=== PATIENT | female | born 1985 | race Two or more races ===

== ENCOUNTER → 2018-08-25 | Emergency (ER) | payer OTHER | LOC: MW.ED 17:09 | DX: O99.89 Other specified diseases and conditions complicating pregnancy, childbirth and the puerperium (principal) ==

== ENCOUNTER 2018-09-04 16:35 | Observation (INO) | payer OTHER | END 2018-09-04 19:05 | disposition home or self-care (01) | LOC: MW.OBCHECK 16:35 → MW.OB 16:38 | PROVIDERS: ADMIT Obstetrics & Gynecology; ATTEND Obstetrics & Gynecology | DX: O77.0 Labor and delivery complicated by meconium in amniotic fluid (principal); O99.824 Streptococcus B carrier state complicating childbirth; Z3A.40 40 weeks gestation of pregnancy; Z37.0 Single live birth | CPT/HCPCS: 59025; 81003 ==

== ENCOUNTER 2018-09-05 07:35 | Inpatient (IN) | payer OTHER ==
[2018-09-05] MEDS ORDERED: Ondansetron 4 MG/2 ML SDV IV PRN (08:04)
[2018-09-05] MEDS ORDERED: Tranexamic Acid 1,000 MG in Sodium Chloride 0.9% 100 ML IV PRN (08:04)
[2018-09-05] MEDS ORDERED: Butorphanol 1 MG/ML SDV IVPUSH PRN (08:04)
[2018-09-05] MEDS ORDERED: Sodium Chloride 0.9% 10 ML SDV IV PRN (08:04)
[2018-09-05] MEDS ORDERED: Methylergonovine 0.2 MG/1 ML Amp IM PRN (08:04)
[2018-09-05] MEDS ORDERED: Carboprost Tromethamine 250 MCG/1 ML Amp IM PRN (08:04)
[2018-09-05] MEDS ORDERED: Lidocaine 1% 50 ML MDV INJECT PRN (08:04)
[2018-09-05] MEDS ORDERED: Water For Irrigation,Sterile 1,000 ML Container IRR PRN (08:04)
[2018-09-05] MEDS ORDERED: Misoprostol 200 MCG Tab PO PRN (08:04)
[2018-09-05] MEDS ORDERED: Ampicillin 2 GM in Sodium Chloride 0.9% 100 ML IV ONE (08:04)
[2018-09-05] MEDS ORDERED: Sodium Chloride 0.9% 2.5 ML Syringe FLUSH PRN (08:04)
[2018-09-05] MEDS ORDERED: Sodium Chloride 0.9% 10 ML Syringe FLUSH PRN (08:04)
[2018-09-05] MEDS ORDERED: Nalbuphine 10 MG/1 ML Vial IVPUSH PRN (08:04)
[2018-09-05] MEDS ORDERED: Lactated Ringers 1,000 ML IV SCH (08:15)
[2018-09-05] MEDS ORDERED: Oxytocin/0.9 % Sodium Chloride 30 UNIT/500 ML BAG IV SCH (08:15)
[2018-09-05] MEDS ORDERED: Ampicillin 1 GM in Sodium Chloride 0.9% 50 ML IV SCH (12:00)
--- NOTE | 2018-09-05 17:00 | PCM.DEL ---
L & D Note - General Info Date of Service: 09/05/18 Mother's Due Date: 09/04/18 - Delivery Note Labor: Augmented by ARM Delivery Outcome: Livebirth Delivery Method: Spontaneous Vaginal Delivery-Single Presentation: Vertex Nuchal Cord: None Anesthesia Type: None Amniotic Fluid Description: Meconium Stained Episiotomy Type: None Laceration: Labial Placenta: Intact Cord: 3 Vessels Estimated Blood Loss: 500 Score 1 min: 9 Score 5 min: 9 Delivery Comments (Free Text/Narrative):: Live female delivered at 1534 9/9 weight 3810g - General Info Date of Service: 09/05/18 - Patient Data Weight - Most Recent: 94.347 kg Lab Results Last 24 Hours: Laboratory Results - last 24 hr 09/05/18 09/05/18 Range/Units 08:31 09:24 WBC 9.01 (4.0-11.0) K/uL RBC 4.42 (4.30-5.90) M/uL Hgb 12.1 (12.0-16.0) g/dL Hct 37.1 (36.0-46.0) % MCV 83.9 (80.0-98.0) fL MCH 27.4 (27.0-32.0) pg MCHC 32.6 (31.0-37.0) g/dL RDW Std Deviation 69.3 H (28.0-62.0) fl RDW Coeff of Enoch 23 H (11.0-15.0) % Plt Count 178 (150-400) K/uL Nucleated RBC % 0.0 /100WBC Nucleated RBCs # 0 K/uL Blood Type A POSITIVE Antibody Screen NEGATIVE Med Orders - Current: Current Medications Butorphanol Tartrate (Stadol) 1 mg IVPUSH Q1H PRN PRN Reason: Pain Carboprost Tromethamine (Hemabate Ds) 250 mcg IM ASDIRECTED PRN PRN Reason: Post Hemorrhage Ampicillin Sodium 1 gm/ Sodium (Chloride) 50 mls @ 100 mls/hr IV Q4H [facility] Last Admin: 09/05/18 12:26 Dose: 100 mls/hr Lactated Ringer's (Ringers, Lactated) 1,000 mls @ 150 mls/hr IV ASDIRECTED [facility] Last Admin: 09/05/18 08:32 Dose: 150 mls/hr Oxytocin/Sodium Chloride (Oxytocin 30 Unit/500 Ml-Ns) 30 unit in 500 mls @ 555 mls/hr IV TITRATE [facility] Last Admin: 09/05/18 15:36 Dose: 555 mls/hr Tranexamic Acid 1,000 mg/ (Sodium Chloride) 110 mls @ 660 mls/hr IV ONETIME PRN PRN Reason: Bleeding Lidocaine HCl (Xylocaine 1%) 50 ml INJECT ONETIME PRN PRN Reason: Laceration repair Methylergonovine Maleate (Methergine) 0.2 mg IM ASDIRECTED PRN PRN Reason: Post Hemorrhage Last Admin: 09/05/18 16:23 Dose: 0.2 mg Misoprostol (Cytotec) 200 mcg PO ONETIME PRN PRN Reason: Post Hemorrhage Nalbuphine HCl (Nubain) 10 mg IVPUSH Q1H PRN PRN Reason: Pain (severe 7-10) Last Admin: 09/05/18 16:10 Dose: 10 mg Ondansetron HCl (Zofran) 4 mg IV Q4H PRN PRN Reason: Nausea/Vomiting Sodium Chloride (Saline Flush) 10 ml FLUSH ASDIRECTED PRN PRN Reason: Keep Vein Open Sodium Chloride (Saline Flush) 2.5 ml FLUSH ASDIRECTED PRN PRN Reason: Keep Vein Open Sodium Chloride (Normal Saline) 10 ml IV ASDIRECTED PRN PRN Reason: IV Use Sterile Water (Sterile Water For Irrigation) 1,000 ml IRR ASDIRECTED PRN PRN Reason: delivery Last Admin: 09/05/18 16:22 Dose: 1,000 ml Discontinued Medications Ampicillin Sodium 2 gm/ Sodium (Chloride) 100 mls @ 200 mls/hr IV ONETIME ONE Stop: 09/05/18 08:33 Last Admin: 09/05/18 08:32 Dose: 200 mls/hr - Problem List & Annotations (1) Vaginal delivery SNOMED Code(s): 051011423 Code(s): O80 - ENCOUNTER FOR FULL-TERM UNCOMPLICATED DELIVERY Status: Acute Current Visit: No - Problem List Review Problem List Initiated/Reviewed/Updated: Yes - My Orders Last 24 Hours: My Active Orders 09/05/18 08:04 Patient Status [ADT] Routine Heart Tones [RC] CONTINUOUS Non Stress Test [RC] PER UNIT ROUTINE May Shower [RC] ASDIRECTED Notify Provider [RC] PRN Up ad Carol [RC] ASDIRECTED Vaginal Exam [RC] PRN Vital Signs [RC] PER UNIT ROUTINE Butorphanol [Stadol] 1 mg IVPUSH Q1H PRN Carboprost Tromethamine [Hemabate DS] 250 mcg IM ASDIRECTED PRN Lidocaine 1% [Xylocaine 1%] 50 ml INJECT ONETIME PRN Methylergonovine [Methergine] 0.2 mg IM ASDIRECTED PRN Nalbuphine [Nubain] 10 mg IVPUSH Q1H PRN Ondansetron [Zofran] 4 mg IV Q4H PRN Sodium Chloride 0.9% [Normal Saline] 10 ml IV ASDIRECTED PRN Sodium Chloride 0.9% [Saline Flush] 10 ml FLUSH ASDIRECTED PRN Sodium Chloride 0.9% [Saline Flush] 2.5 ml FLUSH ASDIRECTED PRN Tranexamic Acid [Cyklokapron] 1,000 mg Sodium Chloride 0.9% [Normal Saline] 100 ml IV ONETIME Water For Irrigation,Sterile [Sterile Water for Irrigation] 1,000 ml IRR ASDIRECTED PRN miSOPROStol [Cytotec] 200 mcg PO ONETIME PRN Scalp Electrode [WOMSER] Per Unit Routine Peripheral IV Insertion Adult [OM.PC] Routine Resuscitation Status Routine 09/05/18 08:15 Lactated Ringers [Ringers, Lactated] 1,000 ml IV ASDIRECTED Oxytocin/0.9 % Sodium Chloride [Oxytocin 30 Unit/500 ML-NS] 30 unit in 500 ml IV TITRATE 09/05/18 12:00 Ampicillin 1 gm Sodium Chloride 0.9% [Normal Saline] 50 ml IV Q4H
[2018-09-05] MEDS ORDERED: oxyCODONE 5 MG Tab PO PRN (17:01)
[2018-09-05] MEDS ORDERED: Acetaminophen 500 MG Tab PO PRN ×2 (17:01)
[2018-09-05] MEDS ORDERED: Benzocaine/Menthol 20%-0.5% Spray 78 GM Cannister TOP PRN (17:01)
[2018-09-05] MEDS ORDERED: Docusate Sodium 100 MG Cap PO PRN (17:01)
[2018-09-05] MEDS ORDERED: Witch Hazel Medicated Pads 40/Jar TOP PRN (17:01)
[2018-09-05] MEDS ORDERED: Bisacodyl 10 MG Supp RECTAL PRN (17:01)
[2018-09-05] MEDS ORDERED: Ibuprofen 400 MG Tab PO PRN (17:01)
[2018-09-05] MEDS ORDERED: Lanolin 100% Cream 7 GM Tube TOP PRN (17:01)
[2018-09-06] MEDS: Ibuprofen 800 MG Tab PO PRN ×2 (00:19→16:40)
--- NOTE | 2018-09-06 02:28 | OR ---
SURGEON: ISHAN DOE DATE OF PROCEDURE:09/05/2018 PREOPERATIVE DIAGNOSES: A 33-year-old 4, para 3, at 40 weeks and 1 day in labor. POSTOPERATIVE DIAGNOSIS: A 33-year-old 4, para 3, at 40 weeks and 1 day in labor. PROCEDURE: Normal spontaneous vaginal delivery. ESTIMATED BLOOD LOSS: 500. PAIN CONTROL: None. NOTES AND FINDINGS: A live female delivered at 1534 hours. score, 9 and 9. Weight is 3810 g. BRIEF HISTORY: She came, 33-year-old, 40 weeks and 1 day, came in active labor. She was 5 cm, GBS positive. She received ampicillin. She then made change. She became 6 to 7 dilated. She was AROM. She then made rapid progress. PROCEDURE IN DETAIL: Before being fully dilated, the patient was pushing, and she delivered the head and the anterior body. The provider was not present then, however, came after delivery of the placenta. Perineum was inspected by the provider, Dr. Mar Christensen, and the perineum had left labial laceration, which was not bleeding, so was left. Massaged yielded a couple of clots in the uterus. Pitocin was running, and Methergine was given. The bleeding was then controlled. All instrument and pad counts were correct x2. The patient tolerated the procedure well, and left in the Labor and Delivery room with the baby in stable condition. RANDY NELSON /[id number] ARMANDO
--- NOTE | 2018-09-06 09:03 | PCM.PNPP ---
- General Info Date of Service: 09/06/18 Subjective Update: 33 yo s/p , comfortable , denies any complains Functional Status: Reports: Pain Controlled, Tolerating Diet, Ambulating, Urinating - Review of Systems General: Reports: No Symptoms HEENT: Reports: No Symptoms Pulmonary: Reports: No Symptoms Cardiovascular: Reports: No Symptoms Gastrointestinal: Reports: No Symptoms Genitourinary: Reports: No Symptoms Musculoskeletal: Reports: No Symptoms Skin: Reports: No Symptoms Neurological: Reports: No Symptoms Psychiatric: Reports: No Symptoms - General Info Date of Service: 09/06/18 - Patient Data Vital Signs - Most Recent: Last Vital Signs Temp 36.6 C 09/06/18 04:41 Pulse 79 09/06/18 07:36 Resp 16 09/06/18 07:36 BP 120/67 09/06/18 07:36 Pulse Ox 96 09/06/18 07:36 Weight - Most Recent: 94.347 kg Lab Results - Last 24 Hours: Laboratory Results - last 24 hr 09/05/18 09/06/18 Range/Units 09:24 05:30 Hgb 11.1 L (12.0-16.0) g/dL Hct 34.9 L (36.0-46.0) % Blood Type A POSITIVE Antibody Screen NEGATIVE Med Orders - Current: Current Medications Acetaminophen (Tylenol Extra Strength) 500 mg PO Q4H PRN PRN Reason: Pain Acetaminophen (Tylenol Extra Strength) 1,000 mg PO Q4H PRN PRN Reason: Pain Benzocaine/Menthol (Dermoplast Pain Relief 20%-0.5% [place]) 78 gm TOP ASDIRECTED PRN PRN Reason: Perineal Comfort Measure Bisacodyl (Dulcolax) 10 mg RECTAL ONETIME PRN PRN Reason: Constipation Butorphanol Tartrate (Stadol) 1 mg IVPUSH Q1H PRN PRN Reason: Pain Carboprost Tromethamine (Hemabate Ds) 250 mcg IM ASDIRECTED PRN PRN Reason: Post Hemorrhage Docusate Sodium (Colace) 100 mg PO BID PRN PRN Reason: Constipation Emollient Ointment (Lansinoh Hpa) 0 gm TOP ASDIRECTED PRN PRN Reason: Sore Nipples Lactated Ringer's (Ringers, Lactated) 1,000 mls @ 150 mls/hr IV ASDIRECTED [facility] Last Admin: 09/05/18 08:32 Dose: 150 mls/hr Oxytocin/Sodium Chloride (Oxytocin 30 Unit/500 Ml-Ns) 30 unit in 500 mls @ 555 mls/hr IV TITRATE [facility] Last Admin: 09/05/18 15:36 Dose: 555 mls/hr Tranexamic Acid 1,000 mg/ (Sodium Chloride) 110 mls @ 660 mls/hr IV ONETIME PRN PRN Reason: Bleeding Ibuprofen (Motrin) 400 mg PO Q4H PRN PRN Reason: Pain Ibuprofen (Motrin) 800 mg PO Q6H PRN PRN Reason: Pain Last Admin: 09/06/18 00:19 Dose: 800 mg Lidocaine HCl (Xylocaine 1%) 50 ml INJECT ONETIME PRN PRN Reason: Laceration repair Methylergonovine Maleate (Methergine) 0.2 mg IM ASDIRECTED PRN PRN Reason: Post Hemorrhage Last Admin: 09/05/18 16:23 Dose: 0.2 mg Misoprostol (Cytotec) 200 mcg PO ONETIME PRN PRN Reason: Post Hemorrhage Nalbuphine HCl (Nubain) 10 mg IVPUSH Q1H PRN PRN Reason: Pain (severe 7-10) Last Admin: 09/05/18 16:10 Dose: 10 mg Ondansetron HCl (Zofran) 4 mg IV Q4H PRN PRN Reason: Nausea/Vomiting Oxycodone HCl (Oxycodone) 5 mg PO Q2H PRN PRN Reason: Pain Sodium Chloride (Saline Flush) 10 ml FLUSH ASDIRECTED PRN PRN Reason: Keep Vein Open Sodium Chloride (Saline Flush) 2.5 ml FLUSH ASDIRECTED PRN PRN Reason: Keep Vein Open Sodium Chloride (Normal Saline) 10 ml IV ASDIRECTED PRN PRN Reason: IV Use Sterile Water (Sterile Water For Irrigation) 1,000 ml IRR ASDIRECTED PRN PRN Reason: delivery Last Admin: 09/05/18 16:22 Dose: 1,000 ml Witch Faviola (Tucks) 1 pad TOP ASDIRECTED PRN PRN Reason: comfort care Discontinued Medications Ampicillin Sodium 1 gm/ Sodium (Chloride) 50 mls @ 100 mls/hr IV Q4H [facility] Last Admin: 09/05/18 12:26 Dose: 100 mls/hr Ampicillin Sodium 2 gm/ Sodium (Chloride) 100 mls @ 200 mls/hr IV ONETIME ONE Stop: 09/05/18 08:33 Last Admin: 09/05/18 08:32 Dose: 200 mls/hr - Infant Interaction Support Person: - Recovery Exam Fundal Tone: Firm Fundal Level: 1 Fingerbreadths Below Umbilicus Fundal Placement: Midline Lochia Amount: Small Lochia Color: Rubra/Red Perineum Description: Intact, Minimal Bruising/Swelling Episiotomy/Laceration: None Bladder Status: Voiding Urinary Elimination: Voided - Exam General: Alert HEENT: Pupils Equal Neck: Supple Lungs: Clear to Auscultation Cardiovascular: Regular Rate, Regular Rhythm GI/Abdominal Exam: Normal Bowel Sounds Extremities: Normal Inspection Neurological: No New Focal Deficit Psy/Mental Status: Alert - Problem List & Annotations (1) Vaginal delivery SNOMED Code(s): 170294642 Code(s): O80 - ENCOUNTER FOR FULL-TERM UNCOMPLICATED DELIVERY Status: Acute Current Visit: No - Problem List Review Problem List Initiated/Reviewed/Updated: Yes - My Orders Last 24 Hours: My Active Orders 09/05/18 08:04 Patient Status [ADT] Routine Heart Tones [RC] CONTINUOUS Non Stress Test [RC] PER UNIT ROUTINE May Shower [RC] ASDIRECTED Notify Provider [RC] PRN Up ad Carol [RC] ASDIRECTED Butorphanol [Stadol] 1 mg IVPUSH Q1H PRN Carboprost Tromethamine [Hemabate DS] 250 mcg IM ASDIRECTED PRN Lidocaine 1% [Xylocaine 1%] 50 ml INJECT ONETIME PRN Methylergonovine [Methergine] 0.2 mg IM ASDIRECTED PRN Nalbuphine [Nubain] 10 mg IVPUSH Q1H PRN Ondansetron [Zofran] 4 mg IV Q4H PRN Sodium Chloride 0.9% [Normal Saline] 10 ml IV ASDIRECTED PRN Sodium Chloride 0.9% [Saline Flush] 10 ml FLUSH ASDIRECTED PRN Sodium Chloride 0.9% [Saline Flush] 2.5 ml FLUSH ASDIRECTED PRN Tranexamic Acid [Cyklokapron] 1,000 mg Sodium Chloride 0.9% [Normal Saline] 100 ml IV ONETIME Water For Irrigation,Sterile [Sterile Water for Irrigation] 1,000 ml IRR ASDIRECTED PRN miSOPROStol [Cytotec] 200 mcg PO ONETIME PRN Peripheral IV Insertion Adult [OM.PC] Routine 09/05/18 08:15 Lactated Ringers [Ringers, Lactated] 1,000 ml IV ASDIRECTED Oxytocin/0.9 % Sodium Chloride [Oxytocin 30 Unit/500 ML-NS] 30 unit in 500 ml IV TITRATE 09/05/18 17:01 Patient Status [ADT] Routine Vital Signs [RC] PER UNIT ROUTINE Acetaminophen [Tylenol Extra Strength] 1,000 mg PO Q4H PRN Acetaminophen [Tylenol Extra Strength] 500 mg PO Q4H PRN Benzocaine/Menthol [Dermoplast Pain Relief 20%-0.5% Clinton] 78 gm TOP ASDIRECTED PRN Bisacodyl [Dulcolax] 10 mg RECTAL ONETIME PRN Docusate Sodium [Colace] 100 mg PO BID PRN Ibuprofen [Motrin] 400 mg PO Q4H PRN Ibuprofen [Motrin] 800 mg PO Q6H PRN Lanolin [Lansinoh HPA] See Dose Instructions TOP ASDIRECTED PRN Witch Faviola [Tucks] 1 pad TOP ASDIRECTED PRN oxyCODONE 5 mg PO Q2H PRN Assess Lochia [WOMSER] Per Unit Routine Assess Uterine Involution [WOMSER] Per Unit Routine Peripheral IV Discontinue [OM.PC] Routine 09/05/18 Dinner Regular Diet [DIET] - Assessment Assessment:: 33 yo P4 s/p PPD 1 , stable - Plan Plan:: Routine care Discharge home
[2018-09-06 16:33] VITALS: BP 133/79
== END 2018-09-06 18:47 | disposition home or self-care (01) | DRG 807 ==
LOC: MW.OBCHECK 07:35 → MW.OB 10:45 → OBSVTOIN 17:01 → MW.OB 17:01
PROVIDERS: ADMIT Obstetrics & Gynecology; ATTEND Obstetrics & Gynecology
PROC: 10E0XZZ Delivery of Products of Conception, External Approach (ICD-10-PCS; principal; 2018-09-06)
PROC: 4A1HXCZ Monitoring of Products of Conception, Cardiac Rate, External Approach (ICD-10-PCS; 2018-09-06)
PROC: 10907ZC Drainage of Amniotic Fluid, Therapeutic from Products of Conception, Via Natural or Artificial Opening (ICD-10-PCS; 2018-09-06)
DX: O48.0 Post-term pregnancy (principal); Z37.0 Single live birth; O99.824 Streptococcus B carrier state complicating childbirth; O99.02 Anemia complicating childbirth; D50.9 Iron deficiency anemia, unspecified; O77.0 Labor and delivery complicated by meconium in amniotic fluid; O70.0 First degree perineal laceration during delivery; Z3A.40 40 weeks gestation of pregnancy
CPT/HCPCS: 36415; 59025; 59409; 85014; 85018; 85027; 86850; 86900; 86901; A9270-GY; J0290; J2210; J2300; J2590; J7030; J7050; J7120

== ENCOUNTER 2019-05-17 12:58 | Emergency (ER) | payer OTHER ==
[2019-05-17] MEDS ORDERED: Erythromycin Base 0.5% Ophth Oint 1 GM Tube EYERT ONE (13:29)
[2019-05-17] MEDS ORDERED: Ketorolac 60 MG/2 ML SDV IM ONE (13:29)
--- NOTE | 2019-05-17 13:36 | EDM.PDOC ---
ED HPI GENERAL MEDICAL PROBLEM - General Chief Complaint: Headache Stated Complaint: DIZZY/HEADACHE Time Seen by Provider: 05/17/19 13:23 Source of Information: Reports: Patient History Limitations: Reports: No Limitations - History of Present Illness INITIAL COMMENTS - FREE TEXT/NARRATIVE: HISTORY AND PHYSICAL: History of present illness: Patient is a 33-year-old female who presents to the emergency room with complaints of headache which she describes as a tension headache. Stating it starts in the neck and posterior scalp and wraps around her temples. She states her headache pain has improved and now describes this as dull. She denies any light or noise sensitivity. No previous history of headaches or migraines. She also noted a burst blood vessel to the right lateral eye with the onset of this headache. She states she has been rubbing the eye frequently but denies any injury or trauma. Patient denies any fever, chills, change in vision, syncope or near syncope. Denies any chest pain, back pain, shortness of breath or cough. Denies any abdominal pain, nausea, vomiting, diarrhea, constipation or dysuria. Has not noted any blood in urine or stool. Patient has been eating and drinking appropriately. Review of systems: As per history of present illness and below otherwise all systems reviewed and negative. Past medical history: As per history of present illness and as reviewed below otherwise noncontributory. Surgical history: As per history of present illness and as reviewed below otherwise noncontributory. Social history: See social history for further information Family history: As per history of present illness and as reviewed below otherwise noncontributory. Physical exam: General: Well developed and nourished 33-year-old female. Alert and oriented. Nontoxic-appearing and in no acute distress. HEENT: Atraumatic, normocephalic, pupils equal and reactive bilaterally, negative for conjunctival pallor or scleral icterus, subconjunctival hemorrhage of the right lateral eye, mucous membranes moist, Bilateral maxillary sinus tenderness, TMs normal bilaterally, throat clear, neck supple, nontender, trachea midline. No drooling or trismus noted. No meningeal signs. No hot potato voice noted. Lungs: Clear to auscultation, breath sounds equal bilaterally, chest nontender. Heart: S1S2, regular rate and rhythm without overt murmur Abdomen: Soft, nondistended, nontender. Negative for masses or hepatosplenomegaly. Negative for costovertebral tenderness. Skin: Intact, warm, dry. No lesions or rashes noted. C-spine/Back: No pinpoint vertebral tenderness upon palpation. No crepitus, step -offs or obvious deformities. Patient is ambulatory into the emergency room without difficulty or deficit. Able to rock back on heels and walk on toes. Denies any urinary or fecal incontinence. Denies any numbness, tingling or saddle paresthesia. Extremities: Atraumatic, moves all extremities per self without difficulty or deficits, negative for cords or calf pain. Neurovascular unremarkable. Neuro: Awake, alert, oriented. Cranial nerves II through XII unremarkable. Cerebellum unremarkable. Motor and sensory unremarkable throughout. Exam nonfocal. Notes: She states her headache pain was much more severe prior to arrival and now states it is dull. My visual exam is within normal limits. She does have a small abrasion from rubbing her eye where she has the subconjunctival hemorrhage. Head CT is negative. Supportive care measures were reviewed and discussed. Voices understanding and is agreeable to plan of care. Denies any further questions or concerns at this time. Diagnostics: Head CT Therapeutics: Erythromycin, Toradol Prescription: None Impression: Subconjunctival hemorrhage, right Tension Migraine Plan: 1. Avoid any strenuous activity. 2. Tylenol and/or Ibuprofen as need for pain 3. Increase your oral fluids to prevent dehydration. Apply ointment 4 x daily over the next several days. 4. Follow up with your primary care provider as we discussed. Return to the ED as needed and as discussed. Definitive disposition and diagnosis as appropriate pending reevaluation and review of above. Treatments MANAGER OF SOFTWARE DEVELOPMENT: Reports: Other (see below) Other Treatments MANAGER OF SOFTWARE DEVELOPMENT: Excedrin at 1130 Head Pain Score (Numeric/FACES): 5 Upper Back Pain Score (Numeric/FACES): 5 - Related Data Allergies Allergy/AdvReac Type Severity Reaction Status Date / Time No Known Allergies Allergy Verified 05/17/19 13:12 Home Meds: Home Meds Amoxicillin 500 mg PO BID 05/17/19 [History] Past Medical History - Past Health History Medical/Surgical History: Denies Medical/Surgical History HEENT History: Reports: None Cardiovascular History: Reports: None Respiratory History: Reports: None Gastrointestinal History: Reports: None, Other (See Below) Other Gastrointestinal History: Colitis Genitourinary History: Reports: None CLINICAL LABORATORY SCIENTIST History: Reports: Musculoskeletal History: Reports: None Neurological History: Reports: Migraines Psychiatric History: Reports: Anxiety Endocrine/Metabolic History: Reports: None Hematologic History: Reports: Anemia Immunologic History: Reports: None Oncologic (Cancer) History: Reports: None Dermatologic History: Reports: None - Infectious Disease History Infectious Disease History: Reports: None - Past Surgical History Head Surgeries/Procedures: Reports: None HEENT Surgical History: Reports: None Respiratory Surgical History: Reports: None GI Surgical History: Reports: None Female Surgical History: Reports: None Social & Family History - Family History Family Medical History: Noncontributory HEENT: Reports: None Cardiac: Reports: None Respiratory: Reports: None GI: Reports: None : Reports: None OBGYN: Reports: None Musculoskeletal: Reports: None Neurological: Reports: Migraines Psychiatric: Reports: None Endocrine/Metabolic: Reports: None Hematologic: Reports: Anemia Immunologic: Reports: None Dermatologic: Reports: None Oncologic: Reports: None - Tobacco Use Smoking Status *Q: Never Smoker Second Hand Smoke Exposure: No - Caffeine Use Caffeine Use: Reports: Coffee - Recreational Drug Use Recreational Drug Use: No ED ROS GENERAL - Review of Systems Review Of Systems: Comprehensive ROS is negative, except as noted in HPI. - Physical Exam Exam: See Below (See dictation) Course - Vital Signs Last Recorded V/S: Last Vital Signs Temp 97.6 F 05/17/19 13:14 Pulse 77 05/17/19 14:59 Resp 18 05/17/19 14:59 BP 108/68 05/17/19 14:59 Pulse Ox 97 05/17/19 14:59 - Orders/Labs/Meds Meds: Medications Discontinued Medications Generic Name Dose Route Start Last Admin Trade Name Freq PRN Reason Stop Dose Admin Erythromycin 1 gm 05/17/19 13:29 05/17/19 13:48 Erythromycin 0.5% Ophth Oint EYERT 05/17/19 13:30 1 gm ONETIME ONE Administration Ketorolac Tromethamine 60 mg 05/17/19 13:29 05/17/19 13:47 Toradol IM 05/17/19 13:30 60 mg ONETIME ONE Administration Departure - Departure Time of Disposition: 14:19 Disposition: Home, Self-Care 01 Clinical Impression: Tension-type headache, Subconjunctival hemorrhage of right eye - Discharge Information Instructions: Tension Headache, Adult, [id number] Referrals: PCP,None [Primary Care Provider] - Forms: ED Department Discharge Additional Instructions: The following information is given to patients seen in the emergency department who are being discharged to home. This information is to outline your options for follow-up care. We provide all patients seen in our emergency department with a follow-up referral. The need for follow-up, as well as the timing and circumstances, are variable depending upon the specifics of your emergency department visit. If you don't have a primary care physician on staff, we will provide you with a referral. We always advise you to contact your personal physician following an emergency department visit to inform them of the circumstance of the visit and for follow-up with them and/or the need for any referrals to a consulting specialist. The emergency department will also refer you to a specialist when appropriate. This referral assures that you have the opportunity for follow-up care with a specialist. All of these measure are taken in an effort to provide you with optimal care, which includes your follow-up. Under all circumstances we always encourage you to contact your private physician who remains a resource for coordinating your care. When calling for follow-up care, please make the office aware that this follow-up is from your recent emergency room visit. If for any reason you are refused follow-up, please contact the [facility] Emergency Department at and asked to speak to the emergency department charge nurse. [facility] [address] [place] [id number] [facility] [address] [place] [id number] 1. Avoid any strenuous activity. 2. Tylenol and/or Ibuprofen as need for pain 3. Increase your oral fluids to prevent dehydration. Apply the ointment 3-4 x daily over the next 5 days 4. Follow up with your primary care provider as we discussed. Return to the ED as needed and as discussed. Sepsis Event Note - Evaluation Sepsis Screening Result: No Definite Risk - Focused Exam Vital Signs: Vital Signs Temp Pulse Resp BP Pulse Ox 05/17/19 14:59 77 18 108/68 97 05/17/19 13:14 97.6 F 74 16 141/78 H 99 Date Exam was Performed: 05/17/19 Time Exam was Performed: 20:52
--- NOTE | 2019-05-17 14:15 | CT ---
Head CT Technique: Multiple axial sections through the brain were obtained. Intravenous contrast was not utilized. Comparison: No prior intracranial imaging is available. Findings: Ventricles along with basal cisterns and sulci over the convexities are within normal limits for the patient's age. No abnormal parenchymal densities are seen. No evidence of intracranial hemorrhage. No midline shift or mass-effect is seen. Bone window settings were reviewed. No acute findings are seen within the paranasal sinuses or mastoid sinuses. No acute calvarial abnormality is appreciated. Impression: 1. Nothing acute is appreciated on noncontrast head CT exam. Diagnostic code #1 This report was dictated in Mountain Standard Time
[2019-05-17 14:59] VITALS: BP 108/68; PULSE 77
== END 2019-05-17 15:00 | disposition home or self-care (01) ==
LOC: MW.ED 12:58
DX: G44.209 Tension-type headache, unspecified, not intractable (principal); H11.31 Conjunctival hemorrhage, right eye
CPT/HCPCS: 70450; 96372; 99284; A9270; J1885; 99283

== ENCOUNTER 2020-08-17 20:21 | Emergency (ER) | payer OTHER ==
[2020-08-17] MEDS ORDERED: Acetaminophen 500 MG Tab PO ONE (20:47)
[2020-08-17] MEDS ORDERED: Sodium Chloride 0.9% 10 ML Syringe FLUSH PRN (20:47)
[2020-08-17] MEDS ORDERED: Ketorolac 30 MG/ML SDV IVPUSH ONE (20:47)
[2020-08-17] MEDS ORDERED: Sodium Chloride 0.9% 2.5 ML Syringe FLUSH PRN (20:47)
[2020-08-17] MEDS ORDERED: Sodium Chloride 0.9% 1,000 ML IV ONE (20:47)
[2020-08-17] MEDS ORDERED: Ondansetron 4 MG/2 ML SDV IVPUSH ONE (20:47)
[2020-08-17 21:30] LABS: BLOOD UREA NITROGEN,BUN 10 mg/dL (7.0-18.0); CHLORIDE,CL 103 mmol/L (98-107); GLUCOSE RANDOM 118 mg/dL (74-106); LIPASE 128 U/L (73-393); POTASSIUM,K 3.3 mmol/L (3.5-5.1); SODIUM,NA 139 mmol/L (136-145)
--- NOTE | 2020-08-17 22:46 | CR ---
INDICATION: COVID symptoms TECHNIQUE: Chest 1 view Comparison: None Findings: Cardiomediastinal silhouette is unremarkable. No pleural effusion or pneumothorax. Faint peripheral right mid and lower lung opacities. Bones are unremarkable. Impression: Faint peripheral right lung opacities which can be seen with infection. Dictated by Willie Gomez MD @ 08/17/2020 10:44:[address] Willie Gomez @ Aug 17 2020 10:44PM
--- NOTE | 2020-08-17 23:07 | EDM.PDOC ---
ED HPI GENERAL MEDICAL PROBLEM - General Chief Complaint: General Stated Complaint: COVID COMPLICATIONS Time Seen by Provider: 08/17/20 20:38 - History of Present Illness INITIAL COMMENTS - FREE TEXT/NARRATIVE: HISTORY AND PHYSICAL: History of present illness: This is a 35-year-old healthy female who presents ER today secondary to concerns of coronavirus. Patient reports that her was recently diagnosed with coronavirus 3 days ago and today has been having nausea, vomiting, cough, congestion, fevers, generalized malaise, weakness. Patient reports she does feel slightly short of breath. Patient denies any abdominal pain or discomfort. Patient denies any chest pain or discomfort except with coughing and deep inspiration. Patient denies any sore throat or ear pain. Patient reports that she feels a burning sensation in her chest when she coughs. Patient reports no history of hypertension, diabetes, liver, lung, kidney problems. Patient reports that she utilize one of her sons inhalers prior to coming to the ED with improvement in her shortness of breath. Patient is currently on her menses which is extremely heavy. She reports that she usually has extremely heavy periods and has been told she has been anemic in the past. Patient is currently not on any iron. Patient denies any recent dizziness syncopal or presyncopal episodes. Patient denies any melena or bright red blood per rectum. Patient reports that she has gone through more than usual pads but is unable to quantify Review of systems: As per history of present illness and below otherwise all systems reviewed and negative. Past medical history: As per history of present illness and as reviewed below otherwise noncontributory. Surgical history: As per history of present illness and as reviewed below otherwise noncontrib utory. Social history: No reported history of drug abuse. Family history: As per history of present illness and as reviewed below otherwise noncontributory. Physical exam: This patient was seen and evaluated during the 2019 SARS-CoV-2 novel coronavirus pandemic period. Community viral transmission is ongoing at time of this encounter and the emergency department is operating under pandemic response procedures. Constitutional: Patient is oriented to person, place, and time. Appears well- developed and well-nourished. No distress. HEENT: Moist mucous membranes Head: Normocephalic and atraumatic, neck supple, no nuchal rigidity, no photophobia, no Kernig's sign or Brudzinski sign, patient does not present with signs or symptoms of be consistent with meningitis. Eyes: Right eye exhibits no discharge. Left eye exhibits no discharge. No scleral icterus, pale conjunctiva. Neck: Normal range of motion. No tracheal deviation present. Cardiovascular: Normal rate and regular rhythm. Tachycardic heart rate of 110 Pulmonary: Effort normal, no respiratory distress. No wheezing rales or rhonchi Abdominal: No distention abd: Soft, nondistended, no rebound/guarding, no psoas or obturator signs, no tenderness at Mcberney's point, no Gaming's sign. Pt does not present with an exam that would be consistent with an acute surgical abdomen at this time, nontender to palpation Musculoskeletal: Normal range of motion Neurologic: Alert and oriented to person, place and time. Skin: [place], warm and dry. Psychiatric: Normal mood and affect. Behavior is normal. Judgment and thought content normal. Nursing note and vital signs have been reviewed Diagnostics: Pulse ox: 98% on room air normal Hemoglobin 8.8. MCV 66. Patient's labs are consistent with microcytic anemia most likely from heavy menses per the patient's report. Covid test positive Chest Xray: Normal cardiac silhouette Increased interstitial markings in the right lung consistent with likely Covid infection. No PTX No evidence of acute bony fracture. As interpreted by ER MD: [employer]: NSS x1 L Zofran 4 mg IV Toradol IV Acetaminophen p.o. Assessment and plan: This is a 35-year-old female who presents ER today secondary to sinus symptoms consistent with coronavirus. Patient's pulse ox here is 98% with a chest x-ray consistent with mild coronavirus infection. Patient is anemic which most likely secondary to her heavy menses. I have discussed with the patient in detail the need to start [id number] or prescription strength iron tablets. Patient is requesting a prescription. Patient has been instructed to use Colace and increase dietary fiber to assist with preventing constipation while on her iron. Patient's pulse ox is 98 to 99% on room air. At this time, the patient does not meet inpatient criteria for treatment of coronavirus nor does she meet outpatient criteria for infusion of antibody. Patient will be discharged home with a prescription for iron, Zofran and ibuprofen. Return precautions been discussed with her and her in detail. They have been Instructed to purchase a pulse oximeter to keep an eye on the oxygen level and to return if any increasing shortness of breath or significant drop in her oxygen level. Reassessment at the time of disposition demonstrates that the patient is in no acute distress. The patient has remained stable throughout the entire ED visit and is without objective evidence for acute process requiring urgent intervention or hospitalization. The patient is stable for discharge, counseling is provided as documented above, discussed symptomatic treatment and specific conditions for return. I have spoken with the patient/caregiver and discussed todays findings, in addition to providing specific details for the plan of care. Questions are answered and there is agreement with the plan. Definitive disposition and diagnosis as appropriate pending reevaluation and review of above. Head Pain Score (Numeric/FACES): 5 - Related Data Allergies Allergy/AdvReac Type Severity Reaction Status Date / Time No Known Allergies Allergy Verified 08/17/20 20:36 Home Meds: Home Meds Ibuprofen 600 mg PO Q6HR PRN #30 tablet 08/17/20 [Rx] Ondansetron [Zofran ODT] 4 mg PO Q6H PRN #12 tab.dis 08/17/20 [Rx] Pnv19/Iron Bg,S.p/Folic AC/Om3 [Pr Maxime 400 EC] 1 each PO DAILY #1 [id number] 08/17/20 [Rx] Past Medical History - Past Health History Medical/Surgical History: Denies Medical/Surgical History HEENT History: Reports: None Cardiovascular History: Reports: None Respiratory History: Reports: None Gastrointestinal History: Reports: None, Other (See Below) Other Gastrointestinal History: Colitis Genitourinary History: Reports: None CREATIVE ARTS THERAPIST History: Reports: Musculoskeletal History: Reports: None Neurological History: Reports: Migraines Psychiatric History: Reports: Anxiety Endocrine/Metabolic History: Reports: None Hematologic History: Reports: Anemia Immunologic History: Reports: None Oncologic (Cancer) History: Reports: None Dermatologic History: Reports: None - Infectious Disease History Infectious Disease History: Reports: None - Past Surgical History Head Surgeries/Procedures: Reports: None HEENT Surgical History: Reports: None Respiratory Surgical History: Reports: None GI Surgical History: Reports: None Female Surgical History: Reports: None Social & Family History - Family History Family Medical History: No Pertinent Family History HEENT: Reports: None Cardiac: Reports: None Respiratory: Reports: None GI: Reports: None : Reports: None OBGYN: Reports: None Musculoskeletal: Reports: None Neurological: Reports: Migraines Psychiatric: Reports: None Endocrine/Metabolic: Reports: None Hematologic: Reports: Anemia Immunologic: Reports: None Dermatologic: Reports: None Oncologic: Reports: None - Tobacco Use Tobacco Use Status *Q: Never Tobacco User - Caffeine Use Caffeine Use: Reports: None - Recreational Drug Use Recreational Drug Use: No ED ROS GENERAL - Review of Systems Review Of Systems: See Below ED EXAM, GENERAL - Physical Exam Exam: See Below Course - Vital Signs Last Recorded V/S: Last Vital Signs Temp 101 F H 08/17/20 21:19 Pulse 109 H 08/17/20 21:59 Resp 18 08/17/20 21:59 BP 101/53 L 08/17/20 21:59 Pulse Ox 96 08/17/20 21:59 - Orders/Labs/Meds Orders: Active Orders 24 hr Category Date Time Status Pulse Oximetry [RC] ASDIRECTED Care 08/17/20 20:47 Active Sodium Chloride 0.9% [Saline Flush] Med 08/17/20 20:47 Active 10 ml FLUSH ASDIRECTED PRN Sodium Chloride 0.9% [Saline Flush] Med 08/17/20 20:47 Active 2.5 ml FLUSH ASDIRECTED PRN Saline Lock Insert [OM.PC] Stat Oth 08/17/20 20:47 Ordered Medication Orders Sodium Chloride (Sodium Chloride 0.9% 10 Ml Syringe) 10 ml FLUSH ASDIRECTED PRN PRN Reason: Keep Vein Open Last Admin: 08/17/20 21:19 Dose: 10 ml Documented by: YASMANY Sodium Chloride (Sodium Chloride 0.9% 2.5 Ml Syringe) 2.5 ml FLUSH ASDIRECTED PRN PRN Reason: Keep Vein Open Last Admin: 08/17/20 21:19 Dose: 2.5 ml Documented by: YASMANY Labs: Laboratory Tests 08/17/20 08/17/20 08/17/20 Range/Units 20:54 20:54 21:00 WBC (4.0-11.0) K/uL RBC (4.30-5.90) M/uL Hgb (12.0-16.0) g/dL Hct (36.0-46.0) % MCV (80.0-98.0) fL MCH (27.0-32.0) pg MCHC (31.0-37.0) g/dL RDW Std Deviation (28.0-62.0) fl RDW Coeff of Enoch (11.0-15.0) % Plt Count (150-400) K/uL Add Manual Diff Neutrophils % (Manual) (48.0-80.0) % Lymphocytes % (Manual) (16.0-40.0) % Monocytes % (Manual) (0.0-15.0) % Eosinophils % (Manual) (0.0-7.0) % Nucleated RBC % /100WBC Absolute Seg Neuts (1.4-5.7) Band Neutrophils # Lymphocytes # (Manual) (0.6-2.4) Monocytes # (Manual) (0.0-0.8) Eosinophils # (Manual) (0.0-0.7) Nucleated RBCs # K/uL Poikilocytosis Anisocytosis Microcytosis Sodium (136-145) mmol/L Potassium (3.5-5.1) mmol/L Chloride (98-107) mmol/L Carbon Dioxide (21.0-32.0) mmol/L BUN (7.0-18.0) mg/dL Creatinine (0.6-1.0) mg/dL Est Cr Clr Drug Dosing mL/min Estimated GFR (MDRD) ml/min Glucose (74-106) mg/dL Calcium (8.5-10.1) mg/dL Total Bilirubin (0.2-1.0) mg/dL AST (15-37) IU/L ALT (14-63) IU/L Alkaline Phosphatase (46-116) U/L Total Protein (6.4-8.2) g/dL Albumin (3.4-5.0) g/dL Globulin (2.6-4.0) g/dL Albumin/Globulin Ratio (0.9-1.6) Lipase (73-393) U/L Urine Color YELLOW Urine Appearance SLT CLOUDY Urine pH 6.0 (5.0-8.0) Ur Specific [place] <= 1.005 (1.001-1.035) Urine Protein TRACE H (NEGATIVE) mg/dL Urine Glucose (UA) NEGATIVE (NEGATIVE) mg/dL Urine Ketones NEGATIVE (NEGATIVE) mg/dL Urine Occult Blood LARGE H (NEGATIVE) Urine Nitrite NEGATIVE (NEGATIVE) Urine Bilirubin NEGATIVE (NEGATIVE) Urine Urobilinogen 0.2 (<2.0) EU/dL Ur Leukocyte Esterase TRACE H (NEGATIVE) Urine RBC 65-70 (0-2/HPF) Urine WBC 4-7 (0-5/HPF) Ur Epithelial Cells FEW (NONE-FEW) Urine Bacteria RARE (NEGATIVE) Urine HCG, Qual NEGATIVE (NEGATIVE) SARS-CoV-2 RNA (JODI) POSITIVE H (NEGATIVE) 08/17/20 08/17/20 Range/Units 21:00 21:00 WBC 6.45 (4.0-11.0) K/uL RBC 4.28 L (4.30-5.90) M/uL Hgb 8.4 L (12.0-16.0) g/dL Hct 28.4 L (36.0-46.0) % MCV 66.4 L (80.0-98.0) fL MCH 19.6 L (27.0-32.0) pg MCHC 29.6 L (31.0-37.0) g/dL RDW Std Deviation 46.6 (28.0-62.0) fl RDW Coeff of Enoch 20 H (11.0-15.0) % Plt Count 190 (150-400) K/uL Add Manual Diff YES Neutrophils % (Manual) 80 (48.0-80.0) % Lymphocytes % (Manual) 14 L (16.0-40.0) % Monocytes % (Manual) 5 (0.0-15.0) % Eosinophils % (Manual) 1 (0.0-7.0) % Nucleated RBC % 0.0 /100WBC Absolute Seg Neuts 5.2 (1.4-5.7) Band Neutrophils # 0.1 Lymphocytes # (Manual) 0.9 (0.6-2.4) Monocytes # (Manual) 0.3 (0.0-0.8) Eosinophils # (Manual) 0.1 (0.0-0.7) Nucleated RBCs # 0 K/uL Poikilocytosis 1+ SLIGHT Anisocytosis 1+ SLIGHT Microcytosis 1+ SLIGHT Sodium 139 (136-145) mmol/L Potassium 3.3 L (3.5-5.1) mmol/L Chloride 103 (98-107) mmol/L Carbon Dioxide 23.0 (21.0-32.0) mmol/L BUN 10 (7.0-18.0) mg/dL Creatinine 0.9 (0.6-1.0) mg/dL Est Cr Clr Drug Dosing 83.23 mL/min Estimated GFR (MDRD) > 60.0 ml/min Glucose 118 H (74-106) mg/dL Calcium 7.8 L (8.5-10.1) mg/dL Total Bilirubin 0.1 L (0.2-1.0) mg/dL AST 23 (15-37) IU/L ALT 18 (14-63) IU/L Alkaline Phosphatase 63 (46-116) U/L Total Protein 8.1 (6.4-8.2) g/dL Albumin 3.3 L (3.4-5.0) g/dL Globulin 4.8 H (2.6-4.0) g/dL Albumin/Globulin Ratio 0.7 L (0.9-1.6) Lipase 128 (73-393) U/L Urine Color Urine Appearance Urine pH (5.0-8.0) Ur Specific [place] (1.001-1.035) Urine Protein (NEGATIVE) mg/dL Urine Glucose (UA) (NEGATIVE) mg/dL Urine Ketones (NEGATIVE) mg/dL Urine Occult Blood (NEGATIVE) Urine Nitrite (NEGATIVE) Urine Bilirubin (NEGATIVE) Urine Urobilinogen (<2.0) EU/dL Ur Leukocyte Esterase (NEGATIVE) Urine RBC (0-2/HPF) Urine WBC (0-5/HPF) Ur Epithelial Cells (NONE-FEW) Urine Bacteria (NEGATIVE) Urine HCG, Qual (NEGATIVE) SARS-CoV-2 RNA (JODI) (NEGATIVE) Meds: Medications Generic Name Dose Route Start Last Admin Trade Name Freq PRN Reason Stop Dose Admin Sodium Chloride 10 ml 08/17/20 20:47 08/17/20 21:19 Sodium Chloride 0.9% 10 Ml Syringe FLUSH 10 ml ASDIRECTED PRN Administration Keep Vein Open Sodium Chloride 2.5 ml 08/17/20 20:47 08/17/20 21:19 Sodium Chloride 0.9% 2.5 Ml Syringe FLUSH 2.5 ml ASDIRECTED PRN Administration Keep Vein Open Discontinued Medications Generic Name Dose Route Start Last Admin Trade Name Freq PRN Reason Stop Dose Admin Acetaminophen 1,000 mg 08/17/20 20:47 08/17/20 21:19 Acetaminophen 500 Mg Tab PO 08/17/20 20:48 1,000 mg ONETIME ONE Administration Sodium Chloride 1,000 mls @ 999 mls/hr 08/17/20 20:47 08/17/20 21:19 Normal Saline IV 08/17/20 21:47 999 mls/hr .Bolus ONE Administration Ketorolac Tromethamine 30 mg 08/17/20 20:47 08/17/20 21:19 Ketorolac 30 Mg/Ml Sdv IVPUSH 08/17/20 20:48 30 mg ONETIME ONE Administration Ondansetron HCl 4 mg 08/17/20 20:47 08/17/20 21:19 Ondansetron 4 Mg/2 Ml Sdv IVPUSH 08/17/20 20:48 4 mg ONETIME ONE Administration Departure - Departure Time of Disposition: 23:07 Disposition: Home, Self-Care 01 Condition: Good Clinical Impression: Pneumonia due to COVID-19 virus, Dehydration Iron deficiency anemia Qualifiers: Iron deficiency anemia type: chronic blood loss Qualified Code(s): D50.0 - Iron deficiency anemia secondary to blood loss (chronic) - Discharge Information Instructions: Dehydration, Adult, [id number], 10 Things You Can Do to Manage Your COVID-19 Symptoms at Home - CDC, COVID-19: Quarantine vs. Isolation - CDC, Preventing Iron Deficiency Anemia, Adult Referrals: PCP,None [Primary Care Provider] - Additional Instructions: You were seen and evaluated in the ER today secondary to signs and symptoms consistent with coronavirus infection. At this time he did not meet criteria for inpatient level of care for treatment of your coronavirus. Please purchase a pulse oximeter at your pharmacy and please keep an eye on your oxygen levels. If your ox level begins to drop below 91% or you start having increasing shortness of breath, please return to the ER for further evaluation. As we discussed, your iron level is extremely low resulting in low hemoglobin. I will write a prescription for iron to take but please take Colace with it so you can avoid symptoms of constipation. You will also be written a prescription for Zofran for nausea and ibuprofen for muscle aches and pains. In addition you can take acetaminophen to help you with your fevers and muscle aches as well. 1. Your COVID-19 screening is positive. That means you do have the coronavirus and you are considered contagious. Your vital signs and oxygen saturation are well enough that you were able to monitor your symptoms at home. Continue to monitor for trouble breathing, new confusion or inability to arouse, bluish lips or face or any of the other symptoms we discussed -if this occurs please return to the emergency room. 2. Please self quarantine over the next 10 days. Inform any persons that you have been in contact with since you started becoming symptomatic that you have t ested positive; they should be made aware and take the appropriate steps as needed. 3. You can take NyQuil during the evening to help get a restful night sleep. May alternate Tylenol and ibuprofen as needed for pain and fever management. 4. The [facility] department will be calling you and following up with you. The [place] COVID 19 Hotline phone number , They are open Wednesday - Wednesday 7am - 7pm. Follow up with your primary care provider for re-evaluation and re-testing after the 10 day quarantine and discuss when you should be seen. The following information is given to patients seen in the emergency department who are being discharged to home. This information is to outline your options for follow-up care. We provide all patients seen in our emergency department with a follow-up referral. The need for follow-up, as well as the timing and circumstances, are variable depending upon the specifics of your emergency department visit. If you don't have a primary care physician on staff, we will provide you with a referral. We always advise you to contact your personal physician following an emergency department visit to inform them of the circumstance of the visit and for follow-up with them and/or the need for any referrals to a consulting specialist. The emergency department will also refer you to a specialist when appropriate. This referral assures that you have the opportunity for follow-up care with a specialist. All of these measure are taken in an effort to provide you with optimal care, which includes your follow-up. Under all circumstances we always encourage you to contact your private physician who remains a resource for coordinating your care. When calling for follow-up care, please make the office aware that this follow-up is from your recent emergency room visit. If for any reason you are refused follow-up, please contact the [facility] Emergency Department at and asked to speak to the emergency department charge nurse. [facility] - Primary Care [address] [place] [address] [facility] [address] [place] [address] Sepsis Event Note (ED) - Evaluation Sepsis Screening Result: Possible Sepsis Risk - Focused Exam Vital Signs: Vital Signs Temp Temp Pulse Resp BP Pulse Ox 08/17/20 21:59 109 H 18 101/53 L 96 08/17/20 21:19 101 F H 08/17/20 20:36 104 F H 122 H 20 120/64 94 L - My Orders Last 24 Hours: My Active Orders 08/17/20 20:47 Pulse Oximetry [RC] ASDIRECTED Sodium Chloride 0.9% [Saline Flush] 10 ml FLUSH ASDIRECTED PRN Sodium Chloride 0.9% [Saline Flush] 2.5 ml FLUSH ASDIRECTED PRN Saline Lock Insert [OM.PC] Stat - Assessment/Plan Last 24 Hours: My Active Orders 08/17/20 20:47 Pulse Oximetry [RC] ASDIRECTED Sodium Chloride 0.9% [Saline Flush] 10 ml FLUSH ASDIRECTED PRN Sodium Chloride 0.9% [Saline Flush] 2.5 ml FLUSH ASDIRECTED PRN Saline Lock Insert [OM.PC] Stat
[2020-08-17 23:26] VITALS: BP 94/42; PULSE 98
--- NOTE | 2020-08-18 11:33 | PCM.SN.2 ---
- Free Text/Narrative Note: Patient called ER today. Patient went to pharmacy to [facility] [place] [facility]. [facility] is closed today. I resent prescriptions for Dr. Layton to [facility].
== END 2020-08-17 23:26 | disposition home or self-care (01) ==
LOC: MW.ED 20:21
DX: U07.1 COVID-19 (principal); J12.82 Pneumonia due to coronavirus disease 2019; E86.0 Dehydration; D50.0 Iron deficiency anemia secondary to blood loss (chronic)
CPT/HCPCS: 36415; 71045; 80053; 81001; 81025; 83690; 85025; 87635; 96374; 96375; 99284; A9270; J1885; J2405; J7030; U0002

== ENCOUNTER 2020-08-19 10:31 | Emergency (ER) | payer OTHER ==
[2020-08-19] MEDS ORDERED: Sodium Chloride 0.9% 1,000 ML IV ONE (12:40)
[2020-08-19 13:45] LABS: BLOOD UREA NITROGEN,BUN 7 mg/dL (7.0-18.0); CARBON DIOXIDE,CO2 24.9 mmol/L (21.0-32.0); CHLORIDE,CL 101 mmol/L (98-107); GLUCOSE RANDOM 107 mg/dL (74-106); POTASSIUM,K 3.9 mmol/L (3.5-5.1); SODIUM,NA 137 mmol/L (136-145)
[2020-08-19] MEDS ORDERED: Ketorolac 30 MG/ML SDV IVPUSH ONE (13:58)
[2020-08-19] MEDS ORDERED: Acetaminophen 500 MG Tab PO ONE (13:58)
[2020-08-19] MEDS ORDERED: Ondansetron 4 MG/2 ML SDV IVPUSH ONE (13:58)
[2020-08-19] MEDS ORDERED: Sodium Chloride 0.9% 500 ML IV SCH (14:00)
[2020-08-19 15:24] VITALS: BP 106/58; PULSE 69
--- NOTE | 2020-08-19 17:00 | EDM.PDOC ---
ED HPI GENERAL MEDICAL PROBLEM - General Chief Complaint: Respiratory Problem Stated Complaint: COVID Time Seen by Provider: 08/19/20 12:04 Source of Information: Reports: Patient History Limitations: Reports: No Limitations - History of Present Illness INITIAL COMMENTS - FREE TEXT/NARRATIVE: HISTORY AND PHYSICAL: History of present illness: Patient is a 35-year-old female, who presents to the ED today with a known COVID-19 diagnosis, who presents to the ED today with concern of cough, tiredness, and states that she is on her menstrual cycle. Patient states that she was told when she was diagnosed with COVID-19 that she had a low hemoglobin. Patient states she has a history of heavy menstrual cycles and states that she has used 1 pad since this morning. Patient states that her menstrual cycle is not heavy today but was concerned that she was tired along with the COVID-19 diagnosis, so thought she would get her hemoglobin reevaluated and needed to get this checked today. Patient states that she was told at her last ER visit she needed to start iron due to her heavy menstrual cycles and was concerned that now that she has Covid, she needed to get this rechecked as she is tired. Patient states at this time, she is not having a heavy cycle. Patient denies any other symptoms or concerns. Patient denies fever, chills, chest pain, shortness of breath. Denies headache, neck stiff ness, change in vision, syncope, or near syncope. Denies nausea, vomiting, abdominal pain, diarrhea, constipation, or dysuria. Has not noted any blood in urine or stool. Patient has been eating and drinking appropriately. Review of systems: As per history of present illness and below otherwise all systems reviewed and negative. Past medical history: As per history of present illness and as reviewed below otherwise noncontributory. Surgical history: As per history of present illness and as reviewed below otherwise noncontributory. Social history: See social history for further information Family history: As per history of present illness and as reviewed below otherwise noncontributory. Physical exam: General: Patient is alert, oriented, and in no acute distress. Patient sitting comfortably on exam table; tired appearing. Patient is tachycardic 110s on exam, otherwise vitals stable and reviewed by me. HEENT: Atraumatic, normocephalic, pupils equal and reactive bilaterally, negative for conjunctival pallor or scleral icterus, mucous membranes moist, TMs normal bilaterally, throat clear, neck supple, nontender, trachea midline. No drooling or trismus noted. No meningeal signs. No hot potato voice noted. Lungs: Clear to auscultation, breath sounds equal bilaterally, chest nontender. Patient speaking clearly without breathlessness, no wheezing or stridor, no accessory muscle use or respiratory distress. Heart: S1S2, regular rate and rhythm without overt murmur Abdomen: Soft, nondistended, nontender. Negative for masses or hepatosplenomegaly. Negative for costovertebral tenderness. Pelvis: Stable nontender. Genitourinary: Deferred. Rectal: Deferred. Skin: Intact, warm, dry. No lesions or rashes noted. Extremities: Atraumatic, negative for cords or calf pain. Neurovascular unremarkable. Neuro: Awake, alert, oriented. Cranial nerves II through XII unremarkable. Cerebellum unremarkable. Motor and sensory unremarkable throughout. Exam nonfo candy. Notes: Patient is a 35-year-old otherwise healthy female, with known COVID-19 diagnosis 2 days ago, who presents secondary to worsening COVID-19 infection symptoms of tiredness, cough and known low hemoglobin concern. Upon arrival to the ED, patient is tired appearing, tachycardic 110s to 115's on exam, otherwise vitally stable. Will perform cardiac evaluation. While awaiting diagnostic completion, patient expresses that she is having left- sided chest pain. Patient has remained tachycardic despite 1 L fluid bolus. Will perform and CT scan r/o PE. See Dr. Crenshaw's dictation for specific EKG interpretation. However, sinus tachycardia with rate of 111 with no signs of ischemic changes. No STEMI. CBC is remarkable for microcytic anemia with a hemoglobin of 8.6, which is improved from 08/17 of 8.4. CMP shows mild elevation of glucose at 107 with a corrected calcium of 8.3 mg/dL. Otherwise, mild derangements unremarkable. Troponin is negative. While awaiting for patient to receive her and CT scan, she declines and CT scan and requesting discharge from ED. Heart rate improved to 70bmp. Discussed with patient that without performing an CT scan, cannot rule out pulmonary embolism. All risks versus benefits discussed with patient and expresses understanding declining and CT scan and requesting discharge from the ED. Strict return precautions thoroughly discussed with patient. Signs and symptoms that were prompt return to ED thoroughly discussed with patient. Discussed importance for follow-up with primary care provider/womens health. Voices understanding and is agreeable to plan of care. Denies any further questions or concerns at this time. Diagnostics: EKG, CBC, CMP, UA, serum hCG, Trop Ang Chest CT (Patient declines) Therapeutics: NS, Tylenol, Toradol, Zofran Prescription: None Impression: COVID-19 infection Microcytic anemia, stable H/O menorrhagia Plan: 1. Your vital signs and oxygen saturation are well enough that you were able to monitor your symptoms at home. Continue to monitor for trouble breathing, new confusion or inability to arouse, bluish lips or face or any of the other symptoms we discussed -if this occurs please return to the emergency room.Continue to monitor your health at home for worsening symptoms so that you can be taken care of and treated quickly if needed. 2. Please self quarantine until 10 days have passed since your symptoms began AND you are fever free (<100.4 degrees fahrenheit) for 24 hours without the use of fever-reducing medications AND symptoms are improving. You should restrict activities outside of your home, except for getting medical care. Do not go to work, school, or public areas. Avoid using public transportation, ride-sharing, or taxis. Inform any persons that you have been in contact with since you started becoming symptomatic that you have tested positive; they should be made aware and take the appropriate steps as needed. 3. Take the medications as priorly prescribed including Iron. 4. You may alternate Tylenol and ibuprofen as needed for pain and fever management. 5. The [place] COVID 19 Hotline phone number , They are open Wednesday - Wednesday 7am - 7pm. Follow up with your primary care provider for re-evaluation and re-testing after quarantine and discuss when you should be seen. 6. For more specific guidelines regarding isolation/quarantine please visit this website. https://www.health.[place].gov/sites/www/files/documents/Files/[facility]/coronavirus/Factsh eet_for_People_With_COVID-19.pdf 7. Follow-up with a women's health care provider as discussed and your primary care provider as discussed. Return to the ED as needed and as discussed. Definitive disposition and diagnosis as appropriate pending reevaluation and review of above. Left Flank Pain Score (Numeric/FACES): 3 - Related Data Allergies Allergy/AdvReac Type Severity Reaction Status Date / Time No Known Allergies Allergy Verified 08/19/20 12:01 Home Meds: Home Meds Ibuprofen 600 mg PO Q6HR PRN #30 tablet 08/17/20 [Rx] Pnv19/Iron Bg,S.p/Folic AC/Om3 [Pr Maxime 400 EC] 1 each PO DAILY #1 [id number] 08/17/20 [Rx] Ondansetron [Zofran ODT] 4 mg PO Q6H PRN #12 tab.dis 08/18/20 [Rx] ,Calc.40/Iron/Folate 1 [Pnv-Select] 1 each PO DAILY #30 tablet 08/18/20 [Rx] Past Medical History - Past Health History Medical/Surgical History: Denies Medical/Surgical History HEENT History: Reports: None Cardiovascular History: Reports: None Respiratory History: Reports: None Gastrointestinal History: Reports: None, Other (See Below) Other Gastrointestinal History: Colitis Genitourinary History: Reports: None 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: Musculoskeletal History: Reports: None Neurological History: Reports: Migraines Psychiatric History: Reports: Anxiety Endocrine/Metabolic History: Reports: None Hematologic History: Reports: Anemia Immunologic History: Reports: None Oncologic (Cancer) History: Reports: None Dermatologic History: Reports: None - Infectious Disease History Infectious Disease History: Reports: None - Past Surgical History Head Surgeries/Procedures: Reports: None HEENT Surgical History: Reports: None Respiratory Surgical History: Reports: None GI Surgical History: Reports: None Female Surgical History: Reports: None Social & Family History - Family History Family Medical History: No Pertinent Family History HEENT: Reports: None Cardiac: Reports: None Respiratory: Reports: None GI: Reports: None : Reports: None OBGYN: Reports: None Musculoskeletal: Reports: None Neurological: Reports: Migraines Psychiatric: Reports: None Endocrine/Metabolic: Reports: None Hematologic: Reports: Anemia Immunologic: Reports: None Dermatologic: Reports: None Oncologic: Reports: None - Caffeine Use Caffeine Use: Reports: None - Recreational Drug Use Recreational Drug Use: No ED ROS GENERAL - Review of Systems Review Of Systems: Comprehensive ROS is negative, except as noted in HPI. ED EXAM, GENERAL - Physical Exam Exam: See Below (see dictation) Course - Vital Signs Last Recorded V/S: Last Vital Signs Temp 98.4 F 08/19/20 11:34 Pulse 69 08/19/20 15:20 Resp 17 08/19/20 15:20 BP 106/58 L 08/19/20 15:20 Pulse Ox 97 08/19/20 15:20 - Orders/Labs/Meds Orders: Active Orders 24 hr Category Date Time Status EKG Documentation Completion [RC] STAT Care 08/19/20 12:54 Active Sodium Chloride 0.9% [Normal Saline] 500 ml Med 08/19/20 14:00 Active IV STAT Medication Orders Sodium Chloride (Normal Saline) 500 mls @ 999 mls/hr IV STAT THAIS Labs: Laboratory Tests 08/19/20 08/19/20 08/19/20 Range/Units 13:08 13:08 13:08 WBC 6.82 (4.0-11.0) K/uL RBC 4.36 (4.30-5.90) M/uL Hgb 8.6 L (12.0-16.0) g/dL Hct 29.1 L (36.0-46.0) % MCV 66.7 L (80.0-98.0) fL MCH 19.7 L (27.0-32.0) pg MCHC 29.6 L (31.0-37.0) g/dL RDW Std Deviation 48.1 (28.0-62.0) fl RDW Coeff of Enoch 20 H (11.0-15.0) % Plt Count 249 (150-400) K/uL MPV 9.80 (7.40-12.00) fL Neut % (Auto) 82.5 H (48.0-80.0) % Lymph % (Auto) 13.9 L (16.0-40.0) % [place] % (Auto) 3.2 (0.0-15.0) % Eos % (Auto) 0.4 (0.0-7.0) % Baso % (Auto) 0.0 (0.0-1.5) % Neut # (Auto) 5.6 (1.4-5.7) K/uL Lymph # (Auto) 1.0 (0.6-2.4) K/uL [place] # (Auto) 0.2 (0.0-0.8) K/uL Eos # (Auto) 0.0 (0.0-0.7) K/uL Baso # (Auto) 0.0 (0.0-0.1) K/uL Nucleated RBC % 0.0 /100WBC Nucleated RBCs # 0 K/uL Sodium 137 (136-145) mmol/L Potassium 3.9 (3.5-5.1) mmol/L Chloride 101 (98-107) mmol/L Carbon Dioxide 24.9 (21.0-32.0) mmol/L BUN 7 (7.0-18.0) mg/dL Creatinine 0.8 (0.6-1.0) mg/dL Est Cr Clr Drug Dosing 93.63 mL/min Estimated GFR (MDRD) > 60.0 ml/min Glucose 107 H (74-106) mg/dL Calcium 8.2 L (8.5-10.1) mg/dL Total Bilirubin 0.2 (0.2-1.0) mg/dL AST 27 (15-37) IU/L ALT 21 (14-63) IU/L Alkaline Phosphatase 71 (46-116) U/L Troponin I (0.000-0.056) ng/mL Total Protein 8.7 H (6.4-8.2) g/dL Albumin 3.3 L (3.4-5.0) g/dL Globulin 5.4 H (2.6-4.0) g/dL Albumin/Globulin Ratio 0.6 L (0.9-1.6) HCG, Qual NEGATIVE (NEG) 08/19/20 Range/Units 13:08 WBC (4.0-11.0) K/uL RBC (4.30-5.90) M/uL Hgb (12.0-16.0) g/dL Hct (36.0-46.0) % MCV (80.0-98.0) fL MCH (27.0-32.0) pg MCHC (31.0-37.0) g/dL RDW Std Deviation (28.0-62.0) fl RDW Coeff of Enoch (11.0-15.0) % Plt Count (150-400) K/uL MPV (7.40-12.00) fL Neut % (Auto) (48.0-80.0) % Lymph % (Auto) (16.0-40.0) % [place] % (Auto) (0.0-15.0) % Eos % (Auto) (0.0-7.0) % Baso % (Auto) (0.0-1.5) % Neut # (Auto) (1.4-5.7) K/uL Lymph # (Auto) (0.6-2.4) K/uL [place] # (Auto) (0.0-0.8) K/uL Eos # (Auto) (0.0-0.7) K/uL Baso # (Auto) (0.0-0.1) K/uL Nucleated RBC % /100WBC Nucleated RBCs # K/uL Sodium (136-145) mmol/L Potassium (3.5-5.1) mmol/L Chloride (98-107) mmol/L Carbon Dioxide (21.0-32.0) mmol/L BUN (7.0-18.0) mg/dL Creatinine (0.6-1.0) mg/dL Est Cr Clr Drug Dosing mL/min Estimated GFR (MDRD) ml/min Glucose (74-106) mg/dL Calcium (8.5-10.1) mg/dL Total Bilirubin (0.2-1.0) mg/dL AST (15-37) IU/L ALT (14-63) IU/L Alkaline Phosphatase (46-116) U/L Troponin I < 0.050 (0.000-0.056) ng/mL Total Protein (6.4-8.2) g/dL Albumin (3.4-5.0) g/dL Globulin (2.6-4.0) g/dL Albumin/Globulin Ratio (0.9-1.6) HCG, Qual (NEG) Meds: Medications Generic Name Dose Route Start Last Admin Trade Name Freq PRN Reason Stop Dose Admin Sodium Chloride 500 mls @ 999 mls/hr 08/19/20 14:00 Normal Saline IV STAT THAIS Discontinued Medications Generic Name Dose Route Start Last Admin Trade Name Freq PRN Reason Stop Dose Admin Acetaminophen 1,000 mg 08/19/20 13:58 08/19/20 14:32 Acetaminophen 500 Mg Tab PO 08/19/20 13:59 1,000 mg ONETIME ONE Administration Sodium Chloride 1,000 mls @ 999 mls/hr 08/19/20 12:40 08/19/20 13:13 Normal Saline IV 08/19/20 13:40 999 mls/hr BOLUS ONE Administration Ketorolac Tromethamine 30 mg 08/19/20 13:58 08/19/20 14:35 Ketorolac 30 Mg/Ml Sdv IVPUSH 08/19/20 13:59 30 mg ONETIME ONE Administration Ondansetron HCl 4 mg 08/19/20 13:58 08/19/20 14:34 Ondansetron 4 Mg/2 Ml Sdv IVPUSH 08/19/20 13:59 4 mg ONETIME ONE Administration Departure - Departure Time of Disposition: 16:58 Disposition: Home, Self-Care 01 Clinical Impression: COVID-19 virus infection, Microcytic anemia, History of menorrhagia - Discharge Information Instructions: COVID-19, COVID-19 Vaccine Information Referrals: PCP,None [Primary Care Provider] - Forms: ED Department Discharge Additional Instructions: The following information is given to patients seen in the emergency department who are being discharged to home. This information is to outline your options for follow-up care. We provide all patients seen in our emergency department with a follow-up referral. The need for follow-up, as well as the timing and circumstances, are variable depending upon the specifics of your emergency department visit. If you don't have a primary care physician on staff, we will provide you with a referral. We always advise you to contact your personal physician following an emergency department visit to inform them of the circumstance of the visit and for follow-up with them and/or the need for any referrals to a consulting specialist. The emergency department will also refer you to a specialist when appropriate. This referral assures that you have the opportunity for follow-up care with a specialist. All of these measure are taken in an effort to provide you with optimal care, which includes your follow-up. Under all circumstances we always encourage you to contact your private physician who remains a resource for coordinating your care. When calling for follow-up care, please make the office aware that this follow-up is from your recent emergency room visit. If for any reason you are refused follow-up, please contact the [facility] Emergency Department at and asked to speak to the emergency department charge nurse. [facility] Primary Care [address] [place] [address] [facility] [address] [place] [address] [facility] [address] [place] [address] 1. Your vital signs and oxygen saturation are well enough that you were able to monitor your symptoms at home. Continue to monitor for trouble breathing, new confusion or inability to arouse, bluish lips or face or any of the other symptoms we discussed -if this occurs please return to the emergency room.Continue to monitor your health at home for worsening symptoms so that you can be taken care of and treated quickly if needed. 2. Please self quarantine until 10 days have passed since your symptoms began AND you are fever free (<100.4 degrees fahrenheit) for 24 hours without the use of fever-reducing medications AND symptoms are improving. You should restrict activities outside of your home, except for getting medical care. Do not go to work, school, or public areas. Avoid using public transportation, ride-sharing, or taxis. Inform any persons that you have been in contact with since you started becoming symptomatic that you have tested positive; they should be made aware and take the appropriate steps as needed. 3. Take the medications as priorly prescribed including Iron. 4. You may alternate Tylenol and ibuprofen as needed for pain and fever management. 5. The [place] TRA Hotline phone number , They are open Wednesday - Wednesday 7am - 7pm. Follow up with your primary care provider for re-evaluation and re-testing after quarantine and discuss when you should be seen. 6. For more specific guidelines regarding isolation/quarantine please visit this website. https://www.health.[place]. gov/sites/www/files/documents/Files/SUSANA/coronavirus/Factsheet_for_People_With_[place] VID-19.pdf 7. Follow-up with a women's health care provider as discussed and your primary care provider as discussed. Return to the ED as needed and as discussed. Sepsis Event Note (ED) - Evaluation Sepsis Screening Result: No Definite Risk - Focused Exam Vital Signs: Vital Signs Temp Pulse Resp BP Pulse Ox 08/19/20 15:20 69 17 106/58 L 97 08/19/20 14:20 63 17 111/70 97 08/19/20 13:21 68 16 115/69 97 08/19/20 12:39 67 106/59 L 97 08/19/20 11:34 98.4 F 116 H 98/56 L 94 L - My Orders Last 24 Hours: My Active Orders 08/19/20 12:54 EKG Documentation Completion [RC] STAT 08/19/20 14:00 Sodium Chloride 0.9% [Normal Saline] 500 ml IV STAT - Assessment/Plan Last 24 Hours: My Active Orders 08/19/20 12:54 EKG Documentation Completion [RC] STAT 08/19/20 14:00 Sodium Chloride 0.9% [Normal Saline] 500 ml IV STAT
--- NOTE | 2020-08-20 07:39 | PCM.EKG ---
#1 Interpretation EKG Date: 08/19/20 Time: 14:09 Rhythm: NSR Rate (Beats/Min): 111 Alexander: Normal P-Wave: Present QRS: Normal ST-T: Normal QT: Normal Comparison: NA - No Prior EKG EKG Interpretation Comments: Sinus Tachycardia
== END 2020-08-19 17:23 | disposition home or self-care (01) ==
LOC: MW.ED 10:31
DX: U07.1 COVID-19 (principal); D50.9 Iron deficiency anemia, unspecified; Z87.42 Personal history of other diseases of the female genital tract
CPT/HCPCS: 36415; 80053; 84484; 84703; 85025; 93005; 96374; 96375; 99283; A9270; J1885; J2405; J7030; 99284